=== PATIENT | male | born 1960 | race Caucasian/White ===

== ENCOUNTER 2021-04-08 11:25 | Inpatient (IN) | payer OTHER ==
[2021-04-08] MEDS ORDERED: DEXTROSE 50%-WATER 25 GM/50 ML DISP.SYRIN ONE (11:46)
[2021-04-08] MEDS ORDERED: SODIUM CHLORIDE 1,000 ML IV STA (12:55)
[2021-04-08 13:44] LABS: BASO % 1.1 % (0-2.0); HEMATOCRIT 32.7 % (35.4-49); HEMOGLOBIN 10.8 GM/dL (11.7-16.9); LYMPH % 17.1 % (8-40); MCH 28.6 pg (25.7-33.7); MEAN CELL VOLUME 86.4 fl (80-96); MEAN PLT VOLUME 8.5 fl (7.5-11.1); MONO % 7.1 % (3.8-10.2); NEUT % 72.7 % (42.8-82.8); PLATELET COUNT 251 10^3/uL (134-434); RBC 3.78 M/mm3 (4.00-5.60); RDW 14.8 % (11.9-15.9); WHITE BLOOD COUNT 9.6 K/mm3 (4.0-10.0)
[2021-04-08 13:52] LABS: INR 1.03 (0.83-1.09); PROTHROMBIN TIME (PATIENT) 12.5 SEC (9.7-13.0)
[2021-04-08 13:54] LABS: ACTIVATED PTT 25.8 SECONDS (25.2-36.5)
[2021-04-08 13:59] LABS: CHLORIDE 96 mmol/L (98-107); SODIUM 131 mmol/L (136-145)
[2021-04-08 14:01] LABS: ALBUMIN 2.9 g/dl (3.4-5.0); ANION GAP 9 MMOL/L (8-16); CALCIUM 8.4 mg/dL (8.5-10.1); CO2 26 mmol/L (21-32)
[2021-04-08 14:02] LABS: BLOOD UREA NITROGEN 40.3 mg/dL (7-18); GLUCOSE,RANDOM 231 mg/dL (74-106); MAGNESIUM 2.6 mg/dL (1.8-2.4)
[2021-04-08 14:05] LABS: SGOT/AST 39 U/L (15-37); SGPT/ALT 48 U/L (13-61)
[2021-04-08 14:06] LABS: BILIRUBIN,TOTAL 0.3 mg/dL (0.2-1); TOT PROT 7.3 g/dl (6.4-8.2)
[2021-04-08 14:07] LABS: ALK PHOS 208 U/L (45-117)
[2021-04-08 14:10] LABS: CREATININE 8.1 mg/dL (0.55-1.3)
[2021-04-08] MEDS ORDERED: SODIUM POLYSTYRENE SULFONATE 15 GM/60 ML BOTTLE PO ONE (17:03)
[2021-04-08] MEDS ORDERED: amLODIPine BESYLATE 5 MG TABLET (FP) ONE (18:14)
[2021-04-08] MEDS ORDERED: ASPIRIN 81 MG CHEWABLE TABLETS ONE (18:14)
[2021-04-08] MEDS ORDERED: CLOPIDOGREL BISULFATE 75 MG TABLET (FP) ONE (18:14)
[2021-04-08] MEDS ORDERED: SODIUM POLYSTYRENE SULFONATE 15 GM/60 ML BOTTLE ONE (18:14)
[2021-04-08] MEDS: ASPIRIN 81 MG CHEWABLE TABLETS PO SCH (18:24)
[2021-04-08] MEDS: INSULIN SLIDING SCALE (NOVOLOG) 1 VIAL SQ SCH (18:24)
[2021-04-08] MEDS: amLODIPine BESYLATE 5 MG TABLET (FP) PO SCH (18:24)
[2021-04-08] MEDS: CLOPIDOGREL BISULFATE 75 MG TABLET (FP) PO SCH (18:24)
[2021-04-08] MEDS ORDERED: ATORVASTATIN CA 40 MG TABLET (FP) PO SCH (22:00)
[2021-04-08] MEDS ORDERED: CARVEDILOL 3.125 MG TABLET (FP) ONE (22:55)
[2021-04-08] MEDS ORDERED: ATORVASTATIN CA 40 MG TABLET (FP) ONE (22:56)
[2021-04-08] MEDS ORDERED: HEPARIN NA (PORCINE) 5,000 UNITS/ML 1ML VIAL ONE (22:56)
[2021-04-08] MEDS: HEPARIN NA (PORCINE) 5,000 UNITS/ML 1ML VIAL SQ SCH (23:03)
[2021-04-08] MEDS: CARVEDILOL 6.25 MG TABLET (FP) PO SCH (23:56)
[2021-04-09 01:07] VITALS: BMI 28.1
[2021-04-09] MEDS: INSULIN SLIDING SCALE (NOVOLOG) 1 VIAL SQ SCH ×3 (06:07→17:22)
[2021-04-09 07:35] LABS: BASO % 1.1 % (0-2.0); EOS % 2.8 % (0-4.5); LYMPH % 21.4 % (8-40); MCH 29.4 pg (25.7-33.7); MCHC 34.3 g/dl (32.0-35.9); MEAN CELL VOLUME 85.7 fl (80-96); MEAN PLT VOLUME 8.5 fl (7.5-11.1); MONO % 7.6 % (3.8-10.2); NEUT % 67.1 % (42.8-82.8); PLATELET COUNT 259 10^3/uL (134-434); RBC 3.38 M/mm3 (4.00-5.60); RDW 15.3 % (11.9-15.9); WHITE BLOOD COUNT 10.1 K/mm3 (4.0-10.0)
[2021-04-09 07:52] LABS: CHLORIDE 99 mmol/L (98-107); SODIUM 133 mmol/L (136-145)
[2021-04-09 07:55] LABS: ANION GAP 9 MMOL/L (8-16); BLOOD UREA NITROGEN 46.8 mg/dL (7-18); CALCIUM 7.7 mg/dL (8.5-10.1); CO2 25 mmol/L (21-32); GLUCOSE,RANDOM 86 mg/dL (74-106)
[2021-04-09 08:01] LABS: CREATININE 8.9 mg/dL (0.55-1.3)
[2021-04-09] MEDS: CLOPIDOGREL BISULFATE 75 MG TABLET (FP) PO SCH (09:23)
[2021-04-09] MEDS: amLODIPine BESYLATE 5 MG TABLET (FP) PO SCH (09:24)
[2021-04-09] MEDS: ASPIRIN 81 MG CHEWABLE TABLETS PO SCH (09:24)
[2021-04-09] MEDS: CARVEDILOL 6.25 MG TABLET (FP) PO SCH ×2 (09:24→21:35)
[2021-04-09] MEDS: HEPARIN NA (PORCINE) 5,000 UNITS/ML 1ML VIAL SQ SCH ×2 (09:24→21:36)
[2021-04-09] MEDS ORDERED: SODIUM CHLORIDE 250 ML IV PRN ×2 (11:35→13:14)
[2021-04-09] MEDS ORDERED: HEPARIN NA (PORCINE) 5,000 UNITS/ML 1ML VIAL IVPUSH ONE (13:15)
[2021-04-09] MEDS ORDERED: CEFEPIME 1 GM in DEXTROSE 5%-WATER - 1 GM/50 ML IVPB IVPB ONE (14:00)
[2021-04-09] MEDS ORDERED: CEFEPIME HCL 1 GM VIAL (RESTRICTED TO ID) ONE (14:18)
[2021-04-09] MEDS ORDERED: DEXTROSE 5%-WATER - 50 ML IVPB ONE (14:19)
[2021-04-09 15:58] LABS: EPI CELLS 7 /uL (0-25.1); HYALINE CASTS 0 /uL (0-3.1); PH,URINE >= 9.0 (5.0-8.0); URINE APPEARANCE CLEAR; URINE BACTERIA 6 /uL (0-1359); URINE BILIRUBIN NEGATIVE (NEGATIVE); URINE COLOR YELLOW; URINE GLUCOSE (UA) TRACE (NEGATIVE); URINE KETONE NEGATIVE (NEGATIVE); URINE LEUK ESTERASE NEGATIVE (NEGATIVE); URINE NITRITE NEGATIVE (NEGATIVE); URINE PROTEIN 4+ (NEGATIVE); URINE RBC 4 /uL (0-23.9); URINE UROBILINOGEN 0.2 mg/dL (0.2-1.0); URINE WBC 6 /uL (0-25.8)
[2021-04-09] MEDS ORDERED: NIFEdipine E.R. 30 MG TABLET PO ONE (17:23)
[2021-04-09] MEDS: VANCOMYCIN 1 GRAM (PRE-DOCKED) 1,000 MG/250 ML BAG IVPB ONE ×2 (18:00→18:03)
[2021-04-09] MEDS: ACETAMINOPHEN 325 MG TABLET (FP) PO PRN ×2 (18:04→21:36)
[2021-04-09] MEDS: ATORVASTATIN CA 10 MG TABLET (FP) PO SCH (21:35)
[2021-04-10] MEDS: INSULIN SLIDING SCALE (NOVOLOG) 1 VIAL SQ SCH ×3 (07:03→18:18)
[2021-04-10 08:17] LABS: BASO % 0.6 % (0-2.0); EOS % 1.7 % (0-4.5); HEMATOCRIT 29.5 % (35.4-49); HEMOGLOBIN 9.8 GM/dL (11.7-16.9); LYMPH % 10.7 % (8-40); MCH 28.6 pg (25.7-33.7); MCHC 33.3 g/dl (32.0-35.9); MEAN CELL VOLUME 85.9 fl (80-96); MEAN PLT VOLUME 8.5 fl (7.5-11.1); MONO % 6.3 % (3.8-10.2); NEUT % 80.7 % (42.8-82.8); PLATELET COUNT 245 10^3/uL (134-434); RBC 3.43 M/mm3 (4.00-5.60); RDW 15.2 % (11.9-15.9); WHITE BLOOD COUNT 11.9 K/mm3 (4.0-10.0)
[2021-04-10 08:36] LABS: CALCIUM 7.8 mg/dL (8.5-10.1)
[2021-04-10 08:37] LABS: BLOOD UREA NITROGEN 27.4 mg/dL (7-18)
[2021-04-10 08:40] LABS: CREATININE 5.9 mg/dL (0.55-1.3)
[2021-04-10] MEDS: NIFEdipine E.R. 90 MG TABLET PO SCH (11:07)
[2021-04-10] MEDS: LISINOPRIL 5 MG TABLET PO SCH (11:07)
[2021-04-10] MEDS: CARVEDILOL 6.25 MG TABLET (FP) PO SCH ×2 (11:07→21:50)
[2021-04-10] MEDS: ASPIRIN 81 MG CHEWABLE TABLETS PO SCH (11:07)
[2021-04-10] MEDS: CLOPIDOGREL BISULFATE 75 MG TABLET (FP) PO SCH (11:07)
[2021-04-10] MEDS: HEPARIN NA (PORCINE) 5,000 UNITS/ML 1ML VIAL SQ SCH ×2 (11:08→21:50)
[2021-04-10] MEDS ORDERED: DEXTROSE 5%-WATER 100 ML IVPB ONE (18:01)
[2021-04-10] MEDS ORDERED: MEROPENEM 1 GM VIAL (RESTRICTED TO ID) IVPB ONE (18:01)
[2021-04-10] MEDS: MEROPENEM 1 GM in DEXTROSE 5%-WATER 100 ML IVPB SCH (18:18)
[2021-04-10] MEDS: ATORVASTATIN CA 10 MG TABLET (FP) PO SCH (21:50)
[2021-04-11] MEDS: INSULIN SLIDING SCALE (NOVOLOG) 1 VIAL SQ SCH ×3 (06:51→17:29)
[2021-04-11 07:16] LABS: BASO % 0.7 % (0-2.0); CHLORIDE 102 mmol/L (98-107); EOS % 2.3 % (0-4.5); HEMATOCRIT 27.5 % (35.4-49); HEMOGLOBIN 9.5 GM/dL (11.7-16.9); LYMPH % 16.3 % (8-40); MCH 29.7 pg (25.7-33.7); MCHC 34.7 g/dl (32.0-35.9); MEAN CELL VOLUME 85.7 fl (80-96); MEAN PLT VOLUME 8.7 fl (7.5-11.1); MONO % 7.5 % (3.8-10.2); NEUT % 73.2 % (42.8-82.8); PLATELET COUNT 247 10^3/uL (134-434); RBC 3.21 M/mm3 (4.00-5.60); RDW 15.5 % (11.9-15.9); SODIUM 138 mmol/L (136-145); WHITE BLOOD COUNT 10.1 K/mm3 (4.0-10.0)
[2021-04-11 07:17] LABS: CALCIUM 7.8 mg/dL (8.5-10.1)
[2021-04-11 07:18] LABS: ANION GAP 7 MMOL/L (8-16); BLOOD UREA NITROGEN 40.5 mg/dL (7-18); CO2 28 mmol/L (21-32); GLUCOSE,RANDOM 106 mg/dL (74-106)
[2021-04-11 07:22] LABS: CREATININE 7.7 mg/dL (0.55-1.3)
[2021-04-11] MEDS ORDERED: MEROPENEM 1 GM VIAL (RESTRICTED TO ID) IVPB ONE (09:40)
[2021-04-11] MEDS ORDERED: DEXTROSE 5%-WATER 100 ML IVPB ONE (09:40)
[2021-04-11] MEDS: CARVEDILOL 6.25 MG TABLET (FP) PO SCH ×2 (09:57→21:56)
[2021-04-11] MEDS: NIFEdipine E.R. 90 MG TABLET PO SCH (09:57)
[2021-04-11] MEDS: LISINOPRIL 5 MG TABLET PO SCH (09:57)
[2021-04-11] MEDS: CLOPIDOGREL BISULFATE 75 MG TABLET (FP) PO SCH (09:58)
[2021-04-11] MEDS: MEROPENEM 1 GM in DEXTROSE 5%-WATER 100 ML IVPB SCH (09:58)
[2021-04-11] MEDS: HEPARIN NA (PORCINE) 5,000 UNITS/ML 1ML VIAL SQ SCH ×2 (09:58→21:56)
[2021-04-11] MEDS: ASPIRIN 81 MG CHEWABLE TABLETS PO SCH (09:58)
[2021-04-11] MEDS ORDERED: SODIUM CHLORIDE 250 ML IV PRN (16:30)
[2021-04-11] MEDS: ATORVASTATIN CA 10 MG TABLET (FP) PO SCH (21:56)
[2021-04-12] MEDS: INSULIN SLIDING SCALE (NOVOLOG) 1 VIAL SQ SCH ×3 (06:22→18:23)
[2021-04-12] MEDS ORDERED: PT OWN MED DRAWER 7, Y5N ONE (09:00)
[2021-04-12] MEDS: LISINOPRIL 5 MG TABLET PO SCH (09:01)
[2021-04-12] MEDS: CLOPIDOGREL BISULFATE 75 MG TABLET (FP) PO SCH (09:01)
[2021-04-12] MEDS: NIFEdipine E.R. 90 MG TABLET PO SCH (09:01)
[2021-04-12] MEDS: ASPIRIN 81 MG CHEWABLE TABLETS PO SCH (09:01)
[2021-04-12] MEDS: CARVEDILOL 6.25 MG TABLET (FP) PO SCH ×2 (09:02→21:24)
[2021-04-12] MEDS: HEPARIN NA (PORCINE) 5,000 UNITS/ML 1ML VIAL SQ SCH ×2 (09:06→21:24)
[2021-04-12 09:37] LABS: BASO % 1.3 % (0-2.0); EOS % 1.9 % (0-4.5); HEMOGLOBIN 10.2 GM/dL (11.7-16.9); LYMPH % 18.1 % (8-40); MCH 29.2 pg (25.7-33.7); MEAN CELL VOLUME 85.8 fl (80-96); MEAN PLT VOLUME 8.7 fl (7.5-11.1); MONO % 5.4 % (3.8-10.2); NEUT % 73.3 % (42.8-82.8); PLATELET COUNT 291 10^3/uL (134-434); RDW 15.3 % (11.9-15.9); WHITE BLOOD COUNT 13.5 K/mm3 (4.0-10.0)
[2021-04-12] MEDS ORDERED: MEROPENEM 1 GM VIAL (RESTRICTED TO ID) IVPB ONE (16:08)
[2021-04-12] MEDS: MEROPENEM 1 GM in DEXTROSE 5%-WATER 100 ML IVPB SCH (16:16)
[2021-04-12 18:55] LABS: CALCIUM 7.6 mg/dL (8.5-10.1)
[2021-04-12 18:56] LABS: BLOOD UREA NITROGEN 20.3 mg/dL (7-18)
[2021-04-12 18:59] LABS: CREATININE 4.5 mg/dL (0.55-1.3)
[2021-04-12] MEDS: ATORVASTATIN CA 10 MG TABLET (FP) PO SCH (21:24)
[2021-04-13] MEDS: INSULIN SLIDING SCALE (NOVOLOG) 1 VIAL SQ SCH ×3 (07:26→17:37)
[2021-04-13 07:32] LABS: EOS % 1.9 % (0-4.5); HEMOGLOBIN 9.6 GM/dL (11.7-16.9); LYMPH % 18.2 % (8-40); MCHC 34.2 g/dl (32.0-35.9); MEAN CELL VOLUME 84.9 fl (80-96); MEAN PLT VOLUME 8.3 fl (7.5-11.1); MONO % 7.3 % (3.8-10.2); NEUT % 71.6 % (42.8-82.8); PLATELET COUNT 243 10^3/uL (134-434); RDW 15.2 % (11.9-15.9)
[2021-04-13 07:54] LABS: MAGNESIUM 2.1 mg/dL (1.8-2.4)
[2021-04-13 07:56] LABS: PHOSPHOROUS 4.6 mg/dL (2.5-4.9)
[2021-04-13] MEDS ORDERED: MEROPENEM 1 GM VIAL (RESTRICTED TO ID) IVPB ONE (11:29)
[2021-04-13] MEDS ORDERED: DEXTROSE 5%-WATER 100 ML IVPB ONE (11:29)
[2021-04-13] MEDS: NIFEdipine E.R. 90 MG TABLET PO SCH (11:31)
[2021-04-13] MEDS: CLOPIDOGREL BISULFATE 75 MG TABLET (FP) PO SCH (11:31)
[2021-04-13] MEDS: MEROPENEM 1 GM in DEXTROSE 5%-WATER 100 ML IVPB SCH (11:31)
[2021-04-13] MEDS: CARVEDILOL 6.25 MG TABLET (FP) PO SCH (11:31)
[2021-04-13] MEDS: HEPARIN NA (PORCINE) 5,000 UNITS/ML 1ML VIAL SQ SCH (11:31)
[2021-04-13] MEDS: LISINOPRIL 5 MG TABLET PO SCH (11:31)
[2021-04-13] MEDS: ASPIRIN 81 MG CHEWABLE TABLETS PO SCH (11:31)
[2021-04-13] MEDS ORDERED: LISINOPRIL 5 MG TABLET PO SCH (14:10)
[2021-04-13] MEDS ORDERED: SODIUM CHLORIDE 250 ML IV PRN (14:10)
[2021-04-13 15:45] VITALS: BP 154/79; PULSE 71; TEMP 97.8
== END 2021-04-13 22:26 | disposition home or self-care (01) | DRG 420 ==
LOC: JER 11:25 → JERBED 15:25 → OBSVTOIN 17:40 → J4W 23:35
PROVIDERS: ADMIT Internal Medicine
PROC: 5A1D70Z Performance of Urinary Filtration, Intermittent, Less than 6 Hours Per Day (ICD-10-PCS; principal; 2021-04-09)
DX: E11.649 Type 2 diabetes mellitus with hypoglycemia without coma (principal); I25.10 Atherosclerotic heart disease of native coronary artery without angina pectoris; E11.22 Type 2 diabetes mellitus with diabetic chronic kidney disease; I12.9 Hypertensive chronic kidney disease with stage 1 through stage 4 chronic kidney disease, or unspecified chronic kidney disease; N18.9 Chronic kidney disease, unspecified; I12.0 Hypertensive chronic kidney disease with stage 5 chronic kidney disease or end stage renal disease; N18.6 End stage renal disease; Z99.2 Dependence on renal dialysis; R78.81 Bacteremia; E78.5 Hyperlipidemia, unspecified; I25.2 Old myocardial infarction; E05.00 Thyrotoxicosis with diffuse goiter without thyrotoxic crisis or storm; T38.3X5A Adverse effect of insulin and oral hypoglycemic [antidiabetic] drugs, initial encounter; E11.40 Type 2 diabetes mellitus with diabetic neuropathy, unspecified; Z79.4 Long term (current) use of insulin
CPT/HCPCS: 36415; 70450-TC; 71045-TC-FY; 80048; 80053; 81003; 82550; 82962; 83735; 84100; 84484; 85025; 85610; 85730; 86803; 87040; 87340; 93005; 93010; 99285-25; C9803; G0378; J1644; U0003; U0005